=== PATIENT | male | born 1965 | race African-American/Black ===

== ENCOUNTER 2021-10-16 13:53 | Emergency (ER) | payer OTHER ==
[2021-10-16] MEDS ORDERED: Morphine 4 MG/ML VIAL ONE (14:22)
[2021-10-16] MEDS ORDERED: Bacitracin 1 PK ONE (14:52)
[2021-10-16] MEDS ORDERED: Boostrix 0.5 ML (Tdap) VIAL ONE (15:40)
== END 2021-10-16 16:12 | disposition home or self-care (01) ==
LOC: NAV ERS 13:53
DX: T21.22XA Burn of second degree of abdominal wall, initial encounter (principal); T24.211A Burn of second degree of right thigh, initial encounter; T21.26XA Burn of second degree of male genital region, initial encounter; I10 Essential (primary) hypertension
CPT/HCPCS: 16020; 90715; 93005; 96374; J2270

== ENCOUNTER 2025-02-16 19:03 | Emergency (ER) | payer OTHER ==
[2025-02-16] MEDS ORDERED: Bacitracin 1 PK ONE (19:42)
== END 2025-02-16 20:15 | disposition home or self-care (01) ==
LOC: NAV ERS 19:03
DX: S60.413A Abrasion of left middle finger, initial encounter (principal); I10 Essential (primary) hypertension; W45.8XXA Other foreign body or object entering through skin, initial encounter
CPT/HCPCS: 99283